=== PATIENT | female | born 1960 | race Caucasian/White ===

== ENCOUNTER 2017-04-16 19:50 | Observation (INO) | payer MEDICARE, MEDICAID ==
[2017-04-16 20:26] LABS: #Basophils 0.1 thou/uL (0.0-0.2); #Eosinphils 0.4 thou/uL (0.0-0.7); #Lymphocytes 3.1 thou/uL (1.20-3.40); #Monocytes 0.9 thou/uL (0.11-0.59); #Neutrophils 4.3 thou/uL (1.40-6.50); %Basophils 0.8 % (0.0-1.0); %Eosinophils 4.7 % (0.0-10.0); %Lymphocytes 35.3 % (21.0-51.0); %Monocytes 9.8 % (0.0-10.0); Hematocrit 37.2 % (36.0-47.0); Mean Platelet Volume 7.4 fL (7.4-10.4); Red Blood Cell (RBC) Count 4.02 mill/uL (4.20-5.40); White Blood Cell (WBC) Count 8.7 thou/uL (4.8-10.8)
[2017-04-16 20:31] LABS: PTT 27.6 SEC (22.9-36.1); Prothrombin Time 13.7 SEC (12.0-14.7)
[2017-04-16 20:48] LABS: ALT (SGPT) 20 U/L (8-55); AST (SGOT) 21 U/L (5-34); Alkaline Phosphatase 79 U/L (40-150); Anion Gap 15 mmol/L (10-20); BUN (Urea Nitrogen) 20 mg/dL (9.8-20.1); Bilirubin, Total 0.4 mg/dL (0.2-1.2); CK (CPK) 172 U/L (29-168); Calc. Creatinine Clearance 0 mL/min (70-130); Carbon Dioxide 27 mmol/L (22-29); Chloride 102 mmol/L (98-107); Estimated GFR-MDRD 58; Globulin 3.2 g/dL (2.4-3.5); Protein, Total 7.8 g/dL (6.0-8.3)
[2017-04-16 20:52] LABS: Troponin I Less than 0.010 ng/mL (< 0.028)
--- NOTE | 2017-04-16 20:53 | RAD ---
RADIOGRAPH CHEST 1 VIEW: 04/16/17 HISTORY: 56-year-old female with chest pain. FINDINGS: There are no air space densities, pulmonary edema, pneumothorax, or cardiomegaly. The lateral costop hrenic angles are sharp. There is a left upper lobe calcified granuloma. IMPRESSION: No acute cardiopulmonary findings. michelle li POS: [facility]
[2017-04-16 23:22] LABS: Amphetamine Detected (NotDetected); Methadone Not Detected (NotDetected); Methamphetamine Detected (NotDetected)
[2017-04-17 00:50] LABS: Troponin I Less than 0.010 ng/mL (< 0.028)
[2017-04-17] MEDS ORDERED: Sodium Chloride 0.9% 1,000 ML IV SCH (01:13)
[2017-04-17] MEDS ORDERED: Ondansetron ODT 4 MG TAB SL PRN (01:13)
[2017-04-17] MEDS ORDERED: Ondansetron HCl/PF 4 MG/2 ML Vial IVP PRN ×2 (01:13→07:01)
[2017-04-17] MEDS ORDERED: Zolpidem Tartrate 5 MG TAB PO PRN (07:01)
[2017-04-17] MEDS ORDERED: Ondansetron ODT 4 MG TAB PO PRN (07:01)
[2017-04-17] MEDS ORDERED: Artificial Tears 18 DROP/0.9 ML EA EYE PRN (07:01)
[2017-04-17] MEDS ORDERED: Senokot 8.6 MG TAB PO PRN (07:01)
[2017-04-17] MEDS ORDERED: Lorazepam 1 MG TAB PO PRN (07:01)
[2017-04-17] MEDS ORDERED: Mag-Al 1200 mg/1200 mg/30 ML UDCUP PO PRN (07:01)
[2017-04-17] MEDS ORDERED: Nitroglycerin 0.4 MG TAB (25 Tab Bottle) SL PRN (07:01)
[2017-04-17] MEDS ORDERED: Sodium Chloride 0.65% Nasal 44 ML BOT EA NARE PRN (07:01)
[2017-04-17] MEDS ORDERED: Diabetic Tussin 200 MG/10 ML UDCUP PO PRN (07:01)
[2017-04-17] MEDS ORDERED: Acetaminophen 325 MG TAB PO PRN (07:01)
[2017-04-17] MEDS ORDERED: Loperamide HCl 2 MG CAP PO PRN ×2 (07:01)
[2017-04-17] MEDS ORDERED: Milk Of Magnesia 30 ML UDCUP PO PRN (07:01)
[2017-04-17] MEDS ORDERED: Eucerin (Mineral Oil/Petrolatum,White) 30 gm Jar TOP PRN (07:01)
[2017-04-17] MEDS ORDERED: Loratadine 10 MG TAB PO PRN (07:01)
[2017-04-17] MEDS ORDERED: Chloraseptic Spray 180 ml Bottle PO PRN (07:01)
[2017-04-17] MEDS ORDERED: hydrALAZINE 20 MG/ML VIAL SLOW IVP PRN (07:01)
[2017-04-17] MEDS ORDERED: Aspirin 325 MG TAB PO SCH (09:00)
[2017-04-17] MEDS ORDERED: Aspirin 325 mg Enteric Coated Tablet PO SCH (09:00)
[2017-04-17] MEDS ORDERED: Famotidine 20 MG TAB PO SCH (09:00)
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
[2017-04-17 15:36] VITALS: BP 103/62; TEMP 98.4
--- NOTE | 2017-05-01 11:18 | EKG ---
Test Reason : Blood Pressure : / mmHG Vent. Rate : 099 BPM Atrial Rate : 099 BPM P-R Int : 138 ms QRS Dur : 084 ms QT Int : 366 ms P-R-T Axes : 075 081 072 degrees QTc Int : 469 ms Normal sinus rhythm Normal ECG Confirmed by RAMONA OLIVIA M.D. ([id number]), film or videotape editor NORA GARCIA ([id number] on 05/01/2017 11:18:08 AM Referred By: Confirmed By:RAMONA OLIVIA M.D.
== END 2017-04-17 17:55 | disposition home or self-care (01) ==
LOC: ERS 19:50 → 2SW 04-17 01:02
PROVIDERS: ADMIT Internal Medicine; ATTEND Internal Medicine
DX: R07.89 Other chest pain (principal); E44.1 Mild protein-calorie malnutrition; F32.9 Major depressive disorder, single episode, unspecified; F41.9 Anxiety disorder, unspecified; F17.210 Nicotine dependence, cigarettes, uncomplicated; Z88.1 Allergy status to other antibiotic agents; Z88.5 Allergy status to narcotic agent; Z88.8 Allergy status to other drugs, medicaments and biological substances; Z90.710 Acquired absence of both cervix and uterus; Z90.49 Acquired absence of other specified parts of digestive tract; Z98.890 Other specified postprocedural states
CPT/HCPCS: 71010; 80053; 80061; 80306; 82550; 82553; 83880; 84484 ×2; 85025; 85610; 85730; 93005; 99285; 99406; G0378; 36415

== ENCOUNTER 2017-07-18 18:34 | Emergency (ER) | payer MEDICARE, MEDICAID ==
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
== END 2017-07-18 20:13 | disposition home or self-care (01) ==
LOC: ERS 18:34
DX: S62.621A Displaced fracture of middle phalanx of left index finger, initial encounter for closed fracture (principal); Z87.891 Personal history of nicotine dependence; Z79.899 Other long term (current) drug therapy; X58.XXXA Exposure to other specified factors, initial encounter

== ENCOUNTER 2018-01-08 02:16 | Emergency (ER) | payer MEDICARE, MEDICAID ==
[2018-01-08 03:18] LABS: Bilirubin Negative (Negative); Blood, Urine Small (Negative); Clarity CLOUDY (Clear); Glucose, Urine (Dipstick) Negative (Negative); Leukocyte Moderate (Negative); Nitrite Negative (Negative); Protein, Urine (Dipstick) Trace mg/dL (Neg-Trace); Specific Gravity, Urine 1.029 (1.002-1.036); Urobilinogen 0.2 mg/dL (0.2-1.0); pH, Urine 5.5 (5.0-9.0)
[2018-01-08 03:20] LABS: Bacteria/HPF Rare-Few HPF (None Seen); Pathc Cast-AUWi Flag 1.59 (0-2.49); Squamous Epithelial 0-3 HPF (0-3)
[2018-01-08 03:21] LABS: Hyaline Casts/LPF 0-3 HYALINE CAST LPF (0-3 Hyaline)
[2018-01-08 03:26] LABS: Amphetamine Detected (NotDetected); Barbiturates Screen Not Detected (NotDetected); Benzodiazepine Screen Detected (NotDetected); Cocaine Metabolite Screen Not Detected (NotDetected); Medtox Control Line Valid? VALID (VALID); Medtox Reader # READER 1; Methadone Not Detected (NotDetected); Methamphetamine Detected (NotDetected); Opiate Screen Detected (NotDetected); Oxycodone Screen Detected (NotDetected); Phencyclidine (PCP) Not Detected (NotDetected); THC/Cannabinoid Screen Not Detected (NotDetected); Tricyclic Screen Not Detected (NotDetected)
[2018-01-08] MEDS ORDERED: Lidocaine 1% (PF) 30 ML VIAL ONE (04:03)
[2018-01-08] MEDS ORDERED: Adacel (T-DAP) 0.5 ML VIAL ONE (04:03)
[2018-01-08] MEDS ORDERED: Lorazepam 1 MG TAB ONE (04:13)
== END 2018-01-08 09:30 | disposition home or self-care (01) ==
LOC: ERS 02:16
DX: S61.411A Laceration without foreign body of right hand, initial encounter (principal); F12.10 Cannabis abuse, uncomplicated; N39.0 Urinary tract infection, site not specified; F41.9 Anxiety disorder, unspecified; Z87.891 Personal history of nicotine dependence; W26.8XXA Contact with other sharp object(s), not elsewhere classified, initial encounter
CPT/HCPCS: 12001; 80306; 81003; 81015; 87086; 90471; 90715; J2001

== ENCOUNTER 2018-01-19 17:16 | Emergency (ER) | payer MEDICARE, OTHER ==
[2018-01-19] MEDS ORDERED: Acetaminophen 500 MG TAB ONE (19:08)
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
== END 2018-01-19 21:58 | disposition home or self-care (01) ==
LOC: ERS 17:16
DX: R07.81 Pleurodynia (principal); M54.5 Low back pain; F41.9 Anxiety disorder, unspecified; F17.210 Nicotine dependence, cigarettes, uncomplicated; Z79.899 Other long term (current) drug therapy; V49.9XXA Car occupant (driver) (passenger) injured in unspecified traffic accident, initial encounter
CPT/HCPCS: 93005

== ENCOUNTER 2023-09-20 13:36 | Emergency (ER) | payer MEDICARE, OTHER ==
[2023-09-20] MEDS ORDERED: Acetaminophen 500 MG TAB ONE (16:09)
[2023-09-20 17:13] LABS: Bacteria/HPF None Seen HPF (None Seen); Bilirubin Negative (Negative); Blood, Urine Negative (Negative); CAUTI Indications for Culture Pelvic or flank pain; Clarity Clear (Clear); Glucose, Urine (Dipstick) Normal (Negative); Ketone, Urine Negative (Negative); Leukocyte Negative Leu/uL (Negative); Nitrite Negative (Negative); Protein, Urine (Dipstick) Negative (Neg-Trace); RBC/HPF 0-3 HPF (0-3); Specific Gravity, Urine 1.022 (1.002-1.036); Squamous Epithelial 0-3 HPF (0-3); Urobilinogen Normal mg/dL (Less than 2); WBC/HPF 0-3 HPF (0-3); pH, Urine 6.5 (5.0-9.0)
[2023-09-20 17:28] LABS: Urine Culture Reflex No No
[2023-09-20] MEDS ORDERED: Phenazopyridine HCl 100 MG TAB ONE (17:28)
== END 2023-09-20 17:43 | disposition home or self-care (01) ==
LOC: ERS 13:36
DX: S39.012A Strain of muscle, fascia and tendon of lower back, initial encounter (principal); F17.210 Nicotine dependence, cigarettes, uncomplicated; X50.0XXA Overexertion from strenuous movement or load, initial encounter
CPT/HCPCS: 81001; 99283

== ENCOUNTER 2023-10-23 12:28 | Emergency (ER) | payer OTHER ==
[2023-10-23] MEDS ORDERED: Lidocaine 4% Patch TD SCH (14:45)
[2023-10-23] MEDS ORDERED: Acetaminophen 500 MG TAB ONE (14:51)
[2023-10-23] MEDS ORDERED: Cyclobenzaprine 10 MG TAB ONE (14:51)
[2023-10-24] MEDS ORDERED: Transdermal Patch Removal TOP SCH (03:00)
== END 2023-10-23 15:38 ==
LOC: ERS 12:28
DX: M54.50 Low back pain, unspecified (principal); F17.290 Nicotine dependence, other tobacco product, uncomplicated; X50.0XXA Overexertion from strenuous movement or load, initial encounter; Y93.F2 Activity, caregiving, lifting; Z79.899 Other long term (current) drug therapy
CPT/HCPCS: 72100